=== PATIENT | female | born 1980 | race Native Hawaiian/Other Pacific Islander ===

== ENCOUNTER → 2016-08-15 | Outpatient (CLI) | payer OTHER ==
[2016-08-15 13:42] LABS: Follicle Stimulating Hormone 5.1 mIU/mL
== END | disposition home or self-care (01) ==
LOC: LABWHC1 12:13
PROVIDERS: ATTEND Obstetrics & Gynecology
DX: N93.1 Pre-pubertal vaginal bleeding (principal)
CPT/HCPCS: 36415; 82670; 83001; 83002

== ENCOUNTER → 2016-09-05 | Outpatient (CLI) | payer OTHER ==
[2016-09-05 16:10] LABS: Follicle Stimulating Hormone 3.8 mIU/mL; Prolactin 10.5 ng/mL (3.0-18.6)
== END | disposition home or self-care (01) ==
LOC: LABWHC1 15:13
PROVIDERS: ATTEND Obstetrics & Gynecology
DX: N93.8 Other specified abnormal uterine and vaginal bleeding (principal)
CPT/HCPCS: 36415; 82670; 83001; 83002; 84146

== ENCOUNTER → 2016-09-09 | Outpatient (CLI) | payer OTHER ==
[2016-09-09 10:48] LABS: Cholesterol 241 mg/dL (<200); Glucose 95 mg/dL (74-99); HDL Cholesterol 46 mg/dL (40-60); Triglycerides 126 mg/dL (<150)
== END | disposition home or self-care (01) ==
LOC: LABWHC1 09:18
PROVIDERS: ATTEND Obstetrics & Gynecology
DX: N93.8 Other specified abnormal uterine and vaginal bleeding (principal)
CPT/HCPCS: 36415; 80061; 82947; 83525

== ENCOUNTER → 2016-09-25 | Outpatient (CLI) | payer OTHER | END | disposition home or self-care (01) | LOC: LABWHC1 09:45 | PROVIDERS: ATTEND Obstetrics & Gynecology | DX: N93.8 Other specified abnormal uterine and vaginal bleeding (principal) | CPT/HCPCS: 36415; 84144 ==

== ENCOUNTER 2016-12-29 10:45 | Emergency (ER) | payer OTHER ==
[2016-12-29 10:49] VITALS: TEMP 97.8
[2016-12-29] MEDS ORDERED: MAG HYDROX/AL HYDROX/SIMETH 30 ML, HYOSCYAMINE ELIXIR 10 ML, CIMETIDINE HCL 300 MG, LID... PO STA ×4 (10:58)
--- NOTE | 2016-12-29 11:08 | ED ---
General Adult HPI - General Chief complaint: Abdominal Pain Stated complaint: abdominal pain Time Seen by Provider: 12/29/16 10:52 Source: patient, RN notes reviewed Mode of arrival: ambulatory Limitations: no limitations - History of Present Illness Initial comments: Patient is a 36-year-old female who presents emergency room today with chief complaint bowel pain on and off over the last 2 months. She does admit that she gets a sharp type pain to the middle of her abdomen. She states it lasted for just a few seconds at a time. States seems to be happening more often. States she was on her way to work when the pain came and did not seem like it is linear. She states having some mild discomfort in the abdomen. Denies radiation. Admits to some nausea at times. Denies any other associated symptoms. Patient denies any recent fever, chills, shortness of breath, chest pain, back pain, nausea or vomiting, numbness or tingling, dysuria or hematuria , constipation or diarrhea, headaches or visual changes, or any other complaints. - Related Data Home Medications Medication Instructions Recorded Confirmed Pnv No.95/Ferrous Fum/Folic AC 1 tab PO DAILY 12/29/16 12/29/16 [ Multivitamin Tablet] Previous Rx's Medication Instructions Recorded Omeprazole 20 mg PO DAILY #20 capsule. 12/29/16 Allergies Allergy/AdvReac Type Severity Reaction Status Date / Time No Known Allergies Allergy Verified 12/29/16 11:13 Review of Systems ROS Statement: Those systems with pertinent positive or pertinent negative responses have been documented in the HPI. ROS Other: All systems not noted in ROS Statement are negative. Past Medical History Past Medical History: No Reported History History of Any Multi-Drug Resistant Organisms: None Reported Past Surgical History: No Surgical Hx Reported Past Psychological History: No Psychological Hx Reported Smoking Status: Current every day smoker Past Alcohol Use History: Occasional Past Drug Use History: None Reported General Exam - General Exam Comments Initial Comments: General: The patient is awake and alert, in no distress, and does not appear acutely ill. Eye: Pupils are equal, round and reactive to light, extra-ocular movements are intact. No nystagmus. There is normal conjunctiva bilaterally. No signs of icterus. Ears, nose, mouth and throat: There are moist mucous membranes and no oral lesions. Neck: The neck is supple, there is no tenderness or JVD. Cardiovascular: There is a regular rate and rhythm. No murmur, rub or gallop is appreciated. Respiratory: Lungs are clear to auscultation, respirations are non-labored, breath sounds are equal. No wheezes, stridor, rales, or rhonchi. Gastrointestinal: Normal appearance and rhythm. Normal bowel sounds. Soft on palpation. Patient does have mild tenderness in epigastric. No rebound tenderness. No Guarding. No CVA tenderness. Musculoskeletal: Normal ROM, no tenderness. Strength 5/5. Sensation intact. Pulses equal bilaterally 2+. Neurological: A&O x 3. CN II-XII intact, There are no obvious motor or sensory deficits. Coordination appears grossly intact. Speech is normal. Skin: Skin is warm and dry and no rashes or lesions are noted. Psychiatric: Cooperative, appropriate mood & affect, normal judgment. Limitations: no limitations Course Vital Signs 12/29/16 12/29/16 10:47 11:49 Temperature 97.8 F Pulse Rate 90 80 Respiratory 20 18 Rate Blood Pressure 139/84 118/76 O2 Sat by Pulse 98 100 Oximetry Medical Decision Making - Medical Decision Making Patient does admit that there was some improvement after GI cocktail. Labs been reviewed. X-rays negative for any acute abnormalities. Results were discussed with the patient. Options of gallbladder disease versus a peptic ulcer disease were discussed with the patient. Patient will be started on Amoxil here in the emergency room and advised follow-up family doctor over the next 2-5 days. Advised return here to the emergency room symptoms increase or worsen or for new concerns. - Lab Data Result diagrams: 12/29/16 11:45 12/29/16 11:45 Lab Results 12/29/16 12/29/16 12/29/16 Range/Units 11:45 11:45 11:45 WBC 8.6 (3.8-10.6) k/uL RBC 5.27 (3.80-5.40) m/uL Hgb 16.0 (11.4-16.0) gm/dL Hct 47.2 H (34.0-46.0) % MCV 89.7 (80.0-100.0) fL MCH 30.4 (25.0-35.0) pg MCHC 33.9 (31.0-37.0) g/dL RDW 14.3 (11.5-15.5) % Plt Count 318 (150-450) k/uL Neutrophils % 76 % Lymphocytes % 15 % Monocytes % 6 % Eosinophils % 2 % Basophils % 0 % Neutrophils # 6.5 (1.3-7.7) k/uL Lymphocytes # 1.3 (1.0-4.8) k/uL Monocytes # 0.5 (0-1.0) k/uL Eosinophils # 0.1 (0-0.7) k/uL Basophils # 0.0 (0-0.2) k/uL Sodium 140 (137-145) mmol/L Potassium 4.1 (3.5-5.1) mmol/L Chloride 108 H (98-107) mmol/L Carbon Dioxide 21 L (22-30) mmol/L Anion Gap 11 mmol/L BUN 18 H (7-17) mg/dL Creatinine 0.70 (0.52-1.04) mg/dL Est GFR (MDRD) Af Amer >60 (>60 ml/min/1.73 sqM) Est GFR (MDRD) Non-Af >60 (>60 ml/min/1.73 sqM) Glucose 113 H (74-99) mg/dL Calcium 9.5 (8.4-10.2) mg/dL Total Bilirubin 1.1 (0.2-1.3) mg/dL AST 31 (14-36) U/L ALT 67 H (9-52) U/L Alkaline Phosphatase 71 (38-126) U/L Total Protein 7.8 (6.3-8.2) g/dL Albumin 4.6 (3.5-5.0) g/dL Amylase 48 (30-110) U/L Lipase 118 (23-300) U/L Urine Color Urine Appearance (Clear) Urine pH (5.0-8.0) Ur Specific [place] (1.001-1.035) Urine Protein (Negative) Urine Glucose (UA) (Negative) Urine Ketones (Negative) Urine Blood (Negative) Urine Nitrite (Negative) Urine Bilirubin (Negative) Urine Urobilinogen (<2.0) mg/dL Ur Leukocyte Esterase (Negative) Urine HCG, Qual Not Detected (Not Detectd) 12/29/16 Range/Units 11:45 WBC (3.8-10.6) k/uL RBC (3.80-5.40) m/uL Hgb (11.4-16.0) gm/dL Hct (34.0-46.0) % MCV (80.0-100.0) fL MCH (25.0-35.0) pg MCHC (31.0-37.0) g/dL RDW (11.5-15.5) % Plt Count (150-450) k/uL Neutrophils % % Lymphocytes % % Monocytes % % Eosinophils % % Basophils % % Neutrophils # (1.3-7.7) k/uL Lymphocytes # (1.0-4.8) k/uL Monocytes # (0-1.0) k/uL Eosinophils # (0-0.7) k/uL Basophils # (0-0.2) k/uL Sodium (137-145) mmol/L Potassium (3.5-5.1) mmol/L Chloride (98-107) mmol/L Carbon Dioxide (22-30) mmol/L Anion Gap mmol/L BUN (7-17) mg/dL Creatinine (0.52-1.04) mg/dL Est GFR (MDRD) Af Amer (>60 ml/min/1.73 sqM) Est GFR (MDRD) Non-Af (>60 ml/min/1.73 sqM) Glucose (74-99) mg/dL Calcium (8.4-10.2) mg/dL Total Bilirubin (0.2-1.3) mg/dL AST (14-36) U/L ALT (9-52) U/L Alkaline Phosphatase (38-126) U/L Total Protein (6.3-8.2) g/dL Albumin (3.5-5.0) g/dL Amylase (30-110) U/L Lipase (23-300) U/L Urine Color Yellow Urine Appearance Clear (Clear) Urine pH 6.5 (5.0-8.0) Ur Specific [place] 1.019 (1.001-1.035) Urine Protein Negative (Negative) Urine Glucose (UA) Negative (Negative) Urine Ketones Negative (Negative) Urine Blood Negative (Negative) Urine Nitrite Negative (Negative) Urine Bilirubin Negative (Negative) Urine Urobilinogen <2.0 (<2.0) mg/dL Ur Leukocyte Esterase Negative (Negative) Urine HCG, Qual (Not Detectd) Disposition Clinical Impression: Abdominal pain Disposition: HOME SELF-CARE Condition: Good Instructions: Abdominal Pain (ED) Additional Instructions: Please use medication as discussed. Please follow-up with family doctor in the next 2 days of symptoms have not improved. Please return to emergency room if the symptoms increase or worsen or for any other concerns. Prescriptions: Omeprazole 20 mg PO DAILY #20 capsule.dr Referrals: None,Stated [Primary Care Provider] - 1-2 days Linda Ayala MD [REFERRING] - 1-2 days Yrn Bennett DO [STAFF PHYSICIAN] - 1-2 days Time of Disposition: 12:31
[2016-12-29] MEDS ORDERED: FAMOTIDINE 20 MG/2 ML VIAL IV STA (11:36)
[2016-12-29] MEDS ORDERED: ONDANSETRON 4 MG/2 ML VIAL IVP STA (11:36)
[2016-12-29] MEDS ORDERED: SODIUM CHLORIDE 0.9% 1,000 ML IV STA (11:36)
[2016-12-29 11:51] VITALS: BP 118/76; PULSE 80; RESP 18
[2016-12-29 11:55] LABS: Basophils % (A) 0 %; CH 31.7; CHCM 35.4; Eosinophils # (A) 0.1 k/uL (0-0.7); Eosinophils % (A) 2 %; HCT 47.2 % (34.0-46.0); HDW 2.27; Luc # (Auto) 0.12; Luc % (Auto) 1; Lymphocytes # (A) 1.3 k/uL (1.0-4.8); Lymphocytes % (A) 15 %; MCH 30.4 pg (25.0-35.0); MCHC 33.9 g/dL (31.0-37.0); MCV 89.7 fL (80.0-100.0); Mean Platelet Volume 7.2; Monocytes # (A) 0.5 k/uL (0-1.0); Monocytes % (A) 6 %; Neutrophils # (A) 6.5 k/uL (1.3-7.7); Neutrophils % (A) 76 %; RBC 5.27 m/uL (3.80-5.40); RDW 14.3 % (11.5-15.5); WBC 8.6 k/uL (3.8-10.6); WBC (Perox) 8.31
[2016-12-29 11:56] LABS: Appearance,Urine Clear (Clear); Bilirubin,Urine Negative (Negative); Glucose,Urine (UA) Negative (Negative); Ketones,Urine Negative (Negative); Leukocyte Esterase,Urine Negative (Negative); Nitrite,Urine Negative (Negative); PH, Urine 6.5 (5.0-8.0); Protein,Urine Negative (Negative); Specific Gravity,Urine 1.019 (1.001-1.035); UA Billing (MACRO vs. MICRO) CHEM; Urobilinogen,Urine <2.0 mg/dL (<2.0)
[2016-12-29 12:06] LABS: ALT 67 U/L (9-52); AST 31 U/L (14-36); Alkaline Phosphatase 71 U/L (38-126); Amylase 48 U/L (30-110); Anion Gap 11 mmol/L; Blood Urea Nitrogen 18 mg/dL (7-17); Calcium 9.5 mg/dL (8.4-10.2); Carbon Dioxide 21 mmol/L (22-30); Chloride 108 mmol/L (98-107); Glucose 113 mg/dL (74-99); Non-African American GFR(MDRD) >60 (>60 ml/min/1.73 sqM); Potassium 4.1 mmol/L (3.5-5.1); Sodium 140 mmol/L (137-145); Total Bilirubin 1.1 mg/dL (0.2-1.3); Total Protein 7.8 g/dL (6.3-8.2)
--- NOTE | 2016-12-29 12:19 | XR ---
EXAMINATION TYPE: XR KUB DATE OF EXAM: 12/29/2016 CLINICAL DATA: 36-year-old female with abdominal pain, [facility] COMPARISON: None FINDINGS: Lung bases are clear. No evidence for free intraperitoneal air. No dilated small bowel or air-fluid levels. Scattered air and stool seen throughout the colon extendi ng distally into the rectum. Mild central burning. A couple small air-fluid level in the right hemico shawanda. No suspicious calcifications identified. IMPRESSION: 1. No evidence of bowel obstruction or free intraperitoneal air. 2. A couple small air-fluid levels in the right hemicolon could represent an enteritis or regional il eus.
== END 2016-12-29 12:45 | disposition home or self-care (01) ==
LOC: EC 10:45
DX: R10.9 Unspecified abdominal pain (principal); R11.0 Nausea; F17.200 Nicotine dependence, unspecified, uncomplicated; Z79.899 Other long term (current) drug therapy
CPT/HCPCS: 36415; 80053; 82150; 83690; 85025; 81003; 81025; 74000; 99284; 96374; 96375; 96361; J2405

== ENCOUNTER 2017-01-30 12:20 | Emergency (ER) | payer OTHER ==
[2017-01-30 12:40] VITALS: TEMP 99
[2017-01-30] MEDS ORDERED: FAMOTIDINE 20 MG/2 ML VIAL IV STA (12:56)
[2017-01-30] MEDS ORDERED: ONDANSETRON 4 MG/2 ML VIAL IVP STA (12:56)
[2017-01-30] MEDS ORDERED: SODIUM CHLORIDE 0.9% 1,000 ML IV STA (12:56)
--- NOTE | 2017-01-30 13:00 | ED ---
General Adult HPI - General Chief complaint: Abdominal Pain Stated complaint: Abd Pain Time Seen by Provider: 01/30/17 12:40 Source: patient, RN notes reviewed Mode of arrival: ambulatory Limitations: no limitations - History of Present Illness Initial comments: 37-year-old female presents emergency Department with chief complaint of centralized abdominal cramping. Patient states she's had this on and off for about 3 months. Patient states it comes and goes at random. Sometimes she'll vomit and that will make her feel better. Patient denies any relation to food. Patient denies any abdominal surgeries. Patient states she went to her doctor they said everything was fine ultrasound. Patient states she just does not know why this pain comes and goes. This time she is feeling somewhat better after she vomited. Patient was concerned due to her symptoms so she thought that she should be evaluated.Patient denies any recent fever, chills, shortness of breath, chest pain, back pain, numbness or tingling, dysuria or hematuria, constipation or diarrhea, headaches or visual changes, or any other current symptoms. - Related Data Home Medications Medication Instructions Recorded Confirmed Pnv No.95/Ferrous Fum/Folic AC 1 tab PO DAILY 12/29/16 12/29/16 [ Multivitamin Tablet] Previous Rx's Medication Instructions Recorded Omeprazole 20 mg PO DAILY #20 capsule. 12/29/16 Allergies Allergy/AdvReac Type Severity Reaction Status Date / Time No Known Allergies Allergy Verified 01/30/17 13:54 Review of Systems ROS Statement: Those systems with pertinent positive or pertinent negative responses have been documented in the HPI. ROS Other: All systems not noted in ROS Statement are negative. Past Medical History Past Medical History: No Reported History History of Any Multi-Drug Resistant Organisms: None Reported Past Surgical History: No Surgical Hx Reported Past Psychological History: No Psychological Hx Reported Smoking Status: Current every day smoker Past Alcohol Use History: Occasional Past Drug Use History: None Reported General Exam - General Exam Comments Initial Comments: General: The patient is awake and alert, in no distress, and does not appear acutely ill. Eye: Pupils are equal, round and reactive to light, extra-ocular movements are intact; there is normal conjunctiva bilaterally. No signs of icterus. Ears, nose, mouth and throat: There are moist mucous membranes. Neck: The neck is supple, there is no tenderness. Cardiovascular: There is a regular rate and rhythm. No murmur, rub or gallop is appreciated. Respiratory: Lungs are clear to auscultation, respirations are non-labored, breath sounds are equal. No wheezes, stridor, rales, or rhonchi. Gastrointestinal: Soft, non-distended, non-tender abdomen without masses or organomegaly noted. There is no rebound or guarding present. No CVA tenderness. Bowel sounds are unremarkable. Back: There is no tenderness to palpation in the midline. There is no obvious deformity. No rashes noted. Musculoskeletal: Normal ROM, no tenderness, There is no pedal edema. There is no calf tenderness or swelling. Sensation intact. Pulses equal bilaterally 2+. Neurological: CN II-XII intact, There are no obvious motor or sensory deficits. Coordination appears grossly intact. Speech is normal. Skin: Skin is warm and dry and no rashes or lesions are noted. Psychiatric: Cooperative, appropriate mood & affect, normal judgment. Limitations: no limitations Course Vital Signs 01/30/17 12:38 Temperature 99 F Pulse Rate 75 Respiratory 16 Rate Blood Pressure 127/73 O2 Sat by Pulse 98 Oximetry Medical Decision Making - Medical Decision Making 37-year-old female presents with complaint abdominal cramping. This time the patient continues complaining of no pain. We did have mildly elevated liver enzymes we offered her x-rays and ultrasounds further evaluate this she states that she will follow up with the GI doctor. We discussed fine about liver enzymes. We did discuss return for resolve her questions. We will respect her wishes about doing further imaging such states that she has had these. This time patient will be discharged home. Patient is agreement this plan. - Lab Data Result diagrams: 01/30/17 13:13 01/30/17 13:13 Lab Results 01/30/17 01/30/17 01/30/17 Range/Units 13:05 13:05 13:13 WBC (3.8-10.6) k/uL RBC (3.80-5.40) m/uL Hgb (11.4-16.0) gm/dL Hct (34.0-46.0) % MCV (80.0-100.0) fL MCH (25.0-35.0) pg MCHC (31.0-37.0) g/dL RDW (11.5-15.5) % Plt Count (150-450) k/uL Neutrophils % % Lymphocytes % % Monocytes % % Eosinophils % % Basophils % % Neutrophils # (1.3-7.7) k/uL Lymphocytes # (1.0-4.8) k/uL Monocytes # (0-1.0) k/uL Eosinophils # (0-0.7) k/uL Basophils # (0-0.2) k/uL Sodium 140 (137-145) mmol/L Potassium 3.9 (3.5-5.1) mmol/L Chloride 106 (98-107) mmol/L Carbon Dioxide 24 (22-30) mmol/L Anion Gap 10 mmol/L BUN 17 (7-17) mg/dL Creatinine 0.60 (0.52-1.04) mg/dL Est GFR (MDRD) Af Amer >60 (>60 ml/min/1.73 sqM) Est GFR (MDRD) Non-Af >60 (>60 ml/min/1.73 sqM) Glucose 120 H (74-99) mg/dL Calcium 9.4 (8.4-10.2) mg/dL Total Bilirubin 1.2 (0.2-1.3) mg/dL AST 52 H (14-36) U/L ALT 135 H (9-52) U/L Alkaline Phosphatase 97 (38-126) U/L Total Protein 7.3 (6.3-8.2) g/dL Albumin 4.4 (3.5-5.0) g/dL Amylase 59 (30-110) U/L Lipase 153 (23-300) U/L Urine Color Light Yellow Urine Appearance Clear (Clear) Urine pH 7.5 (5.0-8.0) Ur Specific [place] 1.005 (1.001-1.035) Urine Protein Negative (Negative) Urine Glucose (UA) Negative (Negative) Urine Ketones Negative (Negative) Urine Blood Negative (Negative) Urine Nitrite Negative (Negative) Urine Bilirubin Negative (Negative) Urine Urobilinogen <2.0 (<2.0) mg/dL Ur Leukocyte Esterase Negative (Negative) Urine HCG, Qual Not Detected (Not Detectd) 01/30/17 Range/Units 13:13 WBC 9.9 (3.8-10.6) k/uL RBC 5.02 (3.80-5.40) m/uL Hgb 15.3 (11.4-16.0) gm/dL Hct 45.9 (34.0-46.0) % MCV 91.5 (80.0-100.0) fL MCH 30.5 (25.0-35.0) pg MCHC 33.4 (31.0-37.0) g/dL RDW 12.8 (11.5-15.5) % Plt Count 297 (150-450) k/uL Neutrophils % 78 % Lymphocytes % 14 % Monocytes % 5 % Eosinophils % 2 % Basophils % 0 % Neutrophils # 7.7 (1.3-7.7) k/uL Lymphocytes # 1.4 (1.0-4.8) k/uL Monocytes # 0.5 (0-1.0) k/uL Eosinophils # 0.2 (0-0.7) k/uL Basophils # 0.0 (0-0.2) k/uL Sodium (137-145) mmol/L Potassium (3.5-5.1) mmol/L Chloride (98-107) mmol/L Carbon Dioxide (22-30) mmol/L Anion Gap mmol/L BUN (7-17) mg/dL Creatinine (0.52-1.04) mg/dL Est GFR (MDRD) Af Amer (>60 ml/min/1.73 sqM) Est GFR (MDRD) Non-Af (>60 ml/min/1.73 sqM) Glucose (74-99) mg/dL Calcium (8.4-10.2) mg/dL Total Bilirubin (0.2-1.3) mg/dL AST (14-36) U/L ALT (9-52) U/L Alkaline Phosphatase (38-126) U/L Total Protein (6.3-8.2) g/dL Albumin (3.5-5.0) g/dL Amylase (30-110) U/L Lipase (23-300) U/L Urine Color Urine Appearance (Clear) Urine pH (5.0-8.0) Ur Specific [place] (1.001-1.035) Urine Protein (Negative) Urine Glucose (UA) (Negative) Urine Ketones (Negative) Urine Blood (Negative) Urine Nitrite (Negative) Urine Bilirubin (Negative) Urine Urobilinogen (<2.0) mg/dL Ur Leukocyte Esterase (Negative) Urine HCG, Qual (Not Detectd) Disposition Clinical Impression: Elevated liver enzymes, Abdominal pain Disposition: HOME SELF-CARE Condition: Stable Instructions: Abdominal Pain (ED) Additional Instructions: Please use medication as discussed. Please follow up with family doctor if symptoms have not improved over the next two days. Please return to the emergency room if your symptoms increase or worsen or for any other concerns. Referrals: Yrn Bennett DO [Primary Care Provider] - 1-2 days Neisha Gonzalez MD [STAFF PHYSICIAN] - 1-2 days Time of Disposition: 13:56
[2017-01-30 13:23] LABS: Basophils % (A) 0 %; CH 31.1; CHCM 34.1; Eosinophils # (A) 0.2 k/uL (0-0.7); Eosinophils % (A) 2 %; HCT 45.9 % (34.0-46.0); HDW 2.29; HGB 15.3 gm/dL (11.4-16.0); Luc # (Auto) 0.12; Luc % (Auto) 1; Lymphocytes # (A) 1.4 k/uL (1.0-4.8); Lymphocytes % (A) 14 %; MCH 30.5 pg (25.0-35.0); MCHC 33.4 g/dL (31.0-37.0); MCV 91.5 fL (80.0-100.0); Mean Platelet Volume 6.6; Monocytes # (A) 0.5 k/uL (0-1.0); Monocytes % (A) 5 %; Neutrophils # (A) 7.7 k/uL (1.3-7.7); Neutrophils % (A) 78 %; RBC 5.02 m/uL (3.80-5.40); RDW 12.8 % (11.5-15.5); WBC 9.9 k/uL (3.8-10.6)
[2017-01-30 13:25] LABS: Appearance,Urine Clear (Clear); Bilirubin,Urine Negative (Negative); Glucose,Urine (UA) Negative (Negative); Ketones,Urine Negative (Negative); Leukocyte Esterase,Urine Negative (Negative); Nitrite,Urine Negative (Negative); PH, Urine 7.5 (5.0-8.0); Protein,Urine Negative (Negative); Specific Gravity,Urine 1.005 (1.001-1.035); UA Billing (MACRO vs. MICRO) CHEM; Urobilinogen,Urine <2.0 mg/dL (<2.0)
[2017-01-30 13:32] LABS: ALT 135 U/L (9-52); AST 52 U/L (14-36); Alkaline Phosphatase 97 U/L (38-126); Amylase 59 U/L (30-110); Anion Gap 10 mmol/L; Blood Urea Nitrogen 17 mg/dL (7-17); Calcium 9.4 mg/dL (8.4-10.2); Carbon Dioxide 24 mmol/L (22-30); Chloride 106 mmol/L (98-107); Glucose 120 mg/dL (74-99); Non-African American GFR(MDRD) >60 (>60 ml/min/1.73 sqM); Potassium 3.9 mmol/L (3.5-5.1); Sodium 140 mmol/L (137-145); Total Bilirubin 1.2 mg/dL (0.2-1.3); Total Protein 7.3 g/dL (6.3-8.2)
[2017-01-30 14:00] VITALS: BP 108/67; PULSE 67; RESP 18
== END 2017-01-30 14:09 | disposition home or self-care (01) ==
LOC: EC 12:20
DX: R10.9 Unspecified abdominal pain (principal); R74.8 Abnormal levels of other serum enzymes; R11.10 Vomiting, unspecified; F17.200 Nicotine dependence, unspecified, uncomplicated; Z79.899 Other long term (current) drug therapy
CPT/HCPCS: 99284 ×2; 96374 ×2; 96375 ×2; 96361 ×2; 36415; 80053; 80074; 82150; 83690; 85025; 81003; 81025; J2405

== ENCOUNTER → 2018-01-01 | Outpatient (CLI) | payer OTHER ==
[2018-01-01 15:53] LABS: Vitamin D 25 Hydroxy 16.2 ng/mL (30.0-100.0)
[2018-01-01 16:44] LABS: Hepatitis C IgG Antibody Non-Reactive (Non-Reactive)
[2018-01-01 18:29] LABS: HIV 1 AB Non-Reactive (Non-Reactive); HIV AB P24 Non-Reactive (Non-Reactive); HIV P24 AG Non-Reactive (Non-Reactive)
== END ==
LOC: LABWHC1 10:29
PROVIDERS: ATTEND Obstetrics & Gynecology Reproductive Endocrinology
DX: Z31.41 Encounter for fertility testing (principal)
CPT/HCPCS: 36415; 82306; 83520; 86780; 86787; 86803; 86850; 86900; 86901; 87340; 87390

== ENCOUNTER → 2018-02-12 | Outpatient (CLI) | payer OTHER ==
[2018-02-12 10:22] LABS: HCG,Quantitative Serum <2.4 mIU/mL
[2018-02-12 15:31] LABS: Progesterone 0.6 ng/mL
== END ==
LOC: LABWHC1 09:00
PROVIDERS: ATTEND Obstetrics & Gynecology Reproductive Endocrinology
DX: E28.9 Ovarian dysfunction, unspecified (principal)
CPT/HCPCS: 36415; 82670; 83001; 83002; 84144; 84443; 84702

== ENCOUNTER → 2018-02-17 | Outpatient (CLI) | payer OTHER ==
[2018-02-17 17:53] LABS: Progesterone <0.2 ng/mL
== END | disposition home or self-care (01) ==
LOC: LABWHC1 09:53
PROVIDERS: ATTEND Obstetrics & Gynecology Reproductive Endocrinology
DX: E28.9 Ovarian dysfunction, unspecified (principal)
CPT/HCPCS: 36415; 82670; 83002; 84144

== ENCOUNTER → 2018-03-03 | Outpatient (CLI) | payer OTHER ==
[2018-02-02 16:50] LABS: HCG,Quantitative Serum <2.4 mIU/mL
--- NOTE | 2018-02-02 17:25 | US ---
EXAMINATION TYPE: US transvaginal DATE OF EXAM: 02/02/2018 COMPARISON: NONE CLINICAL HISTORY: E28.2 Polycystic ovarian syndrome. TECHNIQUE: Transvaginal (TV). : Date of LMP: 12/18/2017 EXAM MEASUREMENTS: Uterus: 6.8 x 3.5 x 3.7 cm Endometrial Stripe: 0.9 cm Right Ovary: 2.7x1.6x3.0 cm Left Ovary: 3.0x1.9x3.7 cm 1. Uterus: small nabothian 0.4 x 0.5 x 0.4 cm 2. Endometrium: 0.7x0.5x 0.7 cm cluster cystic area lower endometrium segment non vascular 3. Right Ovary: multiple cysts 0.7 x 0.6 x 0.4 cm, 0.5 x 0.3 x 0.3 cm 4. Left Ovary: cyst 0.5 x 0.5 x 0.3 cm,0.6 x 0.4 x 0.4 cm, peripheral hypoechoic foci compatible wit h follicles are noted within the left ovary and right ovary. 5. Bilateral Adnexa: wnl 6. Posterior cul-de-sac: wnl Grayscale, color Doppler imaging performed of the ovaries. IMPRESSION: Correlate for Marie-Femi syndrome. Nabothian cysts suspected within the cervix.
[2018-02-03 03:07] LABS: Progesterone 5.3 ng/mL
[2018-03-03 14:37] LABS: HCG,Quantitative Serum <2.4 mIU/mL
--- NOTE | 2018-03-03 16:14 | US ---
EXAMINATION TYPE: US transvaginal DATE OF EXAM: 03/03/2018 COMPARISON: 02/02/2018 CLINICAL HISTORY: 38-year-old female E28.9 OVARIAN DYSFUNCTION, IVF with history of PCOS. TECHNIQUE: Transvaginal (TV) Date of LMP: 03/02/18 FINDINGS: EXAM MEASUREMENTS: Uterus: 8.1 x 3.7 x 4.7 cm Endometrial Stripe: 0.5 cm Right Ovary: 4.4 x 3.4 x 4.0 cm for a volume of 29.9 mL. Left Ovary: 4.8 x 3.4 x 3.1cm for a volume of 25.3 mL. 1. Uterus: Anteverted,wnl. Cervical nabothian cyst is noted. 2. Endometrium: wnl 3. Right Ovary: 15 follicles counted, largest measuring 0.9 x 0.9 x 0.9 4. Left Ovary: 15 follicles counted, largest measuring 1.1 x 0.8 x 0.6cm Spectral, color and waveform doppler imaging shows good arterial and venous flow within the ovaries ; there is no evidence for ovarian torsion. 5. There is trace anterior pelvic free fluid seen on the provided images and trace right adnexal free fluid. IMPRESSION: 1. The ovaries are now mildly enlarged with volumes measuring up to nearly 30 mL. 2. There is also trace anterior and right adnexal free fluid now seen. 3. Additional follow-up as clinically indicated.
[2018-03-03 19:11] LABS: Progesterone 0.5 ng/mL
== END | disposition home or self-care (01) ==
LOC: RADUSWWP 02-02 15:28 → EDSTATUS 02-02 15:40 → RADUSWWP 12:48
PROVIDERS: ATTEND Obstetrics & Gynecology Reproductive Endocrinology
DX: N83.8 Other noninflammatory disorders of ovary, fallopian tube and broad ligament (principal); E28.2 Polycystic ovarian syndrome
CPT/HCPCS: 36415; 76830; 82670; 83001; 83002; 84144; 84443; 84702

== ENCOUNTER 2018-03-10 22:53 | Emergency (ER) | payer OTHER ==
[2018-03-11] MEDS ORDERED: SODIUM CHLORIDE 0.9% 1,000 ML IV ONE
[2018-03-11] MEDS ORDERED: ONDANSETRON 4 MG/2 ML VIAL IVP STA (00:01)
--- NOTE | 2018-03-11 00:07 | ED ---
Abdominal Pain HPI - General Source: patient Mode of arrival: ambulatory Limitations: no limitations <Xiomy Graff - Last Filed: 03/11/18 04:20> <Chrissy Ballesteros - Last Filed: 03/15/18 03:23> - General Chief Complaint: Abdominal Pain Stated Complaint: Abd Pain,Vomiting Time Seen by Provider: 03/10/18 23:14 - History of Present Illness Initial Comments: 38-year-old female with no past medical history presenting today for chief complaint of epigastric abdominal pain and vomiting x1 day. Patient states that on 2 PM she noticed left upper quadrant and epigastric pain she states at first it felt like gas however at work he began to increase she became nauseous and had an episode of vomiting. Patient states that she has vomited 6 times since. She states it feels as though she might have food poisoning. Patient denies gross blood in vomit, she did state there was a small amount of pink in it at one time, patient denies diarrhea, back pain, vaginal bleeding, lower abdominal pain, pelvic pain, chest pain, shortness of breath, dyspnea on exertion. Patient is currently in the process of in vitro fertilization however she is not currently using hormonal replacement. Upon arrival pt HR elevated, temperature 99.5F. Pt did states during episodes of vomiting she felt chilled. Remainder of ROS (-), Patient denies any recent fever, numbness or tingling, dysuria or hematuria, constipation or diarrhea, headaches or visual changes, or any other complaints. (Xiomy Graff) - Related Data Home Medications Medication Instructions Recorded Confirmed Pnv No.95/Ferrous Fum/Folic AC 1 tab PO DAILY 12/29/16 01/30/17 [ Multivitamin Tablet] Naltrexone HCl [Revia] 3 mg PO DAILY 03/10/18 03/10/18 [place]-3 Fatty Acids/Fish Oil [Fish 1 each PO 03/10/18 03/10/18 Oil 1,000 mg Softgel] Previous Rx's Medication Instructions Recorded Ondansetron [Zofran] 4 mg PO Q12HR PRN 7 Days #14 tab 03/11/18 Allergies Allergy/AdvReac Type Severity Reaction Status Date / Time latex AdvReac irritation Verified 03/10/18 23:06 Review of Systems ROS Other: All systems not noted in ROS Statement are negative. Constitutional: Denies: fever, chills ENT: Denies: ear pain, throat pain Respiratory: Denies: cough, dyspnea, wheezes, hemoptysis, stridor Cardiovascular: Denies: chest pain, palpitations, dyspnea on exertion Endocrine: Denies: fatigue Gastrointestinal: Reports: abdominal pain, nausea, vomiting. Denies: as per HPI , diarrhea, constipation, hematemesis, melena, hematochezia Genitourinary: Denies: urgency, dysuria, frequency, hematuria Musculoskeletal: Denies: back pain Skin: Denies: rash, lesions Neurological: Denies: headache, weakness, numbness, paresthesias, confusion, abnormal gait <Xiomy Graff - Last Filed: 03/11/18 04:20> ROS Other: All systems not noted in ROS Statement are negative. <Chrissy Ballesteros - Last Filed: 03/15/18 03:23> ROS Statement: Those systems with pertinent positive or pertinent negative responses have been documented in the HPI. Past Medical History Past Medical History: No Reported History History of Any Multi-Drug Resistant Organisms: None Reported Past Surgical History: No Surgical Hx Reported Additional Past Surgical History / Comment(s): nasal, egg retreival Past Psychological History: No Psychological Hx Reported Smoking Status: Current every day smoker Past Alcohol Use History: Rare Past Drug Use History: None Reported <Xiomy Graff - Last Filed: 03/11/18 04:20> General Exam Limitations: no limitations <Xiomy Graff - Last Filed: 03/11/18 04:20> <Chrissy Ballesteros P - Last Filed: 03/15/18 03:23> - General Exam Comments Initial Comments: General: The patient is awake and alert, in no distress, and does not appear acutely ill. Eye: Pupils are equal, round and reactive to light, extra-ocular movements are intact. No nystagmus. There is normal conjunctiva bilaterally. No signs of icterus. Ears, nose, mouth and throat: There are dry mucous membranes and no oral lesions. Neck: The neck is supple, there is no tenderness or JVD. Cardiovascular: There is a regular rate and rhythm. No murmur, rub or gallop is appreciated. Respiratory: Lungs are clear to auscultation, respirations are non-labored, breath sounds are equal. No wheezes, stridor, rales, or rhonchi. Gastrointestinal: No noted diaphoresis, jaundice, pallor, protecting postures or squirming. Symmetrical pigmentation of abdomen without signs of inflammation, scars, or striae. Umbilicus mildline, inverted without swelling. No dilated veins.No noted abdominal distention. No visible masses. No peristalsis, aortic pulsations , or ventral hernia. Bowel sounds audible in all 4 quadrants, unremarkable. No friction rubs or venous hums. No epigastic, hepatic or abdominal bruits. mild discomfort with deep palpation of the epigastric and left upper quadrant. Remainder of abdominal exam no tenderness to light or deep palpation. Liver edge , not palpable. Spleen edge, right and left kidney not palpable. Superior bladder margin non-tender. Special Testing: Negative [place], Rovsing, McBurney, Geovanny, cutaneous hyperesthesia. Iliopsoas and obturator tests negative bilaterally. Negative Heel Jar test. No CVA tenderness. Digital rectal exam deferred. Negative gonsalez turners or cullens sign Musculoskeletal: Normal ROM, no tenderness. Strength 5/5. Sensation intact. Radial pulses equal bilaterally 2+. Neurological: A&O x 3. CN II-XII intact, There are no obvious motor or sensory deficits. Coordination appears grossly intact. Speech is normal. Skin: Skin is warm and dry and no rashes or lesions are noted. Psychiatric: Cooperative, appropriate mood & affect, normal judgment. (Xiomy Graff) Course <Xiomy Graff - Last Filed: 03/11/18 04:20> <Chrissy Ballesteros - Last Filed: 03/15/18 03:23> Vital Signs 03/10/18 03/11/18 23:02 02:02 Temperature 99.5 F 99 F Pulse Rate 125 H 81 Respiratory 16 18 Rate Blood Pressure 124/84 104/65 O2 Sat by Pulse 97 97 Oximetry - Reevaluation(s) Reevaluation #1: Patient states that she is feeling almost 100% better from arrival after administration of Zofran and IV fluids. Patient states ready for discharge. 03/11/18 (Xiomy Graff) Medical Decision Making - Lab Data Result diagrams: 03/11/18 00:15 03/11/18 00:15 <Xiomy Graff - Last Filed: 03/11/18 04:20> - Lab Data Result diagrams: 03/11/18 00:15 03/11/18 00:15 <Chrissy Ballesteros - Last Filed: 03/15/18 03:23> - Medical Decision Making Upon arrival patient spell signs except limits. Patient does not appear to be acute distress. Patient given 1 L IV fluid bolus given history of vomiting. As well as Zofran for nausea. Abdominal exam overall benign, patient did admit to some mild epigastric and left upper quadrant discomfort, she denies this being pain. No signs concerning for acute abdomen. Laboratory findings revealed elevated white blood cell, nonspecific finding. HCG negative. Urinalysis revealed 25 squamous cell, this was not a clean catch, patient is finishing menstruation. No leukocyte esterase or nitrates. She denies urinary symptoms. Given patient clinical improvement with Zofran IV fluids I feel she is stable for discharge. Patient states this symptoms felt similar to food poisoning, at this time I feel patient may have gastroenteritis. Patient was given strict return parameters for any worsening symptoms. Patient verbalized understanding. Patient case discussed with Dr. Ballesteros who agreed impression and plan. She is to follow-up with primary care provider in one to 2 days. Initial heart rate upon arrival 125, repeat 81. Patient discharged in stable condition, patient denied questions. She was discharged with a outpatient prescription for Zofran for nausea. (Xiomy Graff) I was available for consultation in the emergency department. The history and physical exam were done by the midlevel provider. I was consulted for this patient's care. I reviewed the case with the midlevel provider and based on their presentation of the patient, I agree with the assessment, medical decision making and plan of care as documented. (Chrissy Ballesteros) - Lab Data Lab Results 03/11/18 03/11/18 03/11/18 Range/Units 00:15 00:15 00:15 WBC 15.3 H (3.8-10.6) k/uL RBC 5.17 (3.80-5.40) m/uL Hgb 15.6 (11.4-16.0) gm/dL Hct 46.2 H (34.0-46.0) % MCV 89.4 (80.0-100.0) fL MCH 30.2 (25.0-35.0) pg MCHC 33.8 (31.0-37.0) g/dL RDW 13.2 (11.5-15.5) % Plt Count 273 (150-450) k/uL Neutrophils % 93 % Lymphocytes % 3 % Monocytes % 3 % Eosinophils % 1 % Basophils % 0 % Neutrophils # 14.1 H (1.3-7.7) k/uL Lymphocytes # 0.4 L (1.0-4.8) k/uL Monocytes # 0.5 (0-1.0) k/uL Eosinophils # 0.1 (0-0.7) k/uL Basophils # 0.0 (0-0.2) k/uL Sodium 139 (137-145) mmol/L Potassium 4.3 (3.5-5.1) mmol/L Chloride 108 H (98-107) mmol/L Carbon Dioxide 20 L (22-30) mmol/L Anion Gap 11 mmol/L BUN 23 H (7-17) mg/dL Creatinine 0.69 (0.52-1.04) mg/dL Est GFR (CKD-EPI)AfAm >90 (>60 ml/min/1.73 sqM) Est GFR (CKD-EPI)NonAf >90 (>60 ml/min/1.73 sqM) Glucose 128 H (74-99) mg/dL Calcium 9.3 (8.4-10.2) mg/dL Total Bilirubin 1.3 (0.2-1.3) mg/dL AST 28 (14-36) U/L ALT 43 (9-52) U/L Alkaline Phosphatase 72 (38-126) U/L Total Protein 7.8 (6.3-8.2) g/dL Albumin 4.6 (3.5-5.0) g/dL Lipase 119 (23-300) U/L Urine Color Light Brown Urine Appearance Turbid H (Clear) Urine pH 5.5 (5.0-8.0) Ur Specific [place] 1.029 (1.001-1.035) Urine Protein 1+ H (Negative) Urine Glucose (UA) Negative (Negative) Urine Ketones 1+ H (Negative) Urine Blood Trace H (Negative) Urine Nitrite Negative (Negative) Urine Bilirubin Negative (Negative) Urine Urobilinogen 2.0 (<2.0) mg/dL Ur Leukocyte Esterase Negative (Negative) Urine WBC 17 H (0-5) /hpf Ur Squamous Epith Cells 25 H (0-4) /hpf Amorphous Sediment Occasional H (None) /hpf Urine Mucus Many H (None) /hpf Urine HCG, Qual (Not Detectd) 03/11/18 Range/Units 00:15 WBC (3.8-10.6) k/uL RBC (3.80-5.40) m/uL Hgb (11.4-16.0) gm/dL Hct (34.0-46.0) % MCV (80.0-100.0) fL MCH (25.0-35.0) pg MCHC (31.0-37.0) g/dL RDW (11.5-15.5) % Plt Count (150-450) k/uL Neutrophils % % Lymphocytes % % Monocytes % % Eosinophils % % Basophils % % Neutrophils # (1.3-7.7) k/uL Lymphocytes # (1.0-4.8) k/uL Monocytes # (0-1.0) k/uL Eosinophils # (0-0.7) k/uL Basophils # (0-0.2) k/uL Sodium (137-145) mmol/L Potassium (3.5-5.1) mmol/L Chloride (98-107) mmol/L Carbon Dioxide (22-30) mmol/L Anion Gap mmol/L BUN (7-17) mg/dL Creatinine (0.52-1.04) mg/dL Est GFR (CKD-EPI)AfAm (>60 ml/min/1.73 sqM) Est GFR (CKD-EPI)NonAf (>60 ml/min/1.73 sqM) Glucose (74-99) mg/dL Calcium (8.4-10.2) mg/dL Total Bilirubin (0.2-1.3) mg/dL AST (14-36) U/L ALT (9-52) U/L Alkaline Phosphatase (38-126) U/L Total Protein (6.3-8.2) g/dL Albumin (3.5-5.0) g/dL Lipase (23-300) U/L Urine Color Urine Appearance (Clear) Urine pH (5.0-8.0) Ur Specific [place] (1.001-1.035) Urine Protein (Negative) Urine Glucose (UA) (Negative) Urine Ketones (Negative) Urine Blood (Negative) Urine Nitrite (Negative) Urine Bilirubin (Negative) Urine Urobilinogen (<2.0) mg/dL Ur Leukocyte Esterase (Negative) Urine WBC (0-5) /hpf Ur Squamous Epith Cells (0-4) /hpf Amorphous Sediment (None) /hpf Urine Mucus (None) /hpf Urine HCG, Qual Not Detected (Not Detectd) Disposition Is patient prescribed a controlled substance at d/c from ED?: No Time of Disposition: 01:31 <Xiomy Graff - Last Filed: 03/11/18 04:20> <Chrissy Ballesteros P - Last Filed: 03/15/18 03:23> Clinical Impression: Nausea and vomiting, Epigastric pain Disposition: HOME SELF-CARE Condition: Good Instructions: Acute Nausea and Vomiting (ED), Abdominal Pain (ED) Additional Instructions: Please use medication as discussed. Please follow-up with family doctor in the next 2 days.. Please return to emergency room if the symptoms increase or worsen or for any other concerns, including worsening/changes in abdominal pain. Prescriptions: Ondansetron [Zofran] 4 mg PO Q12HR PRN 7 Days #14 tab PRN Reason: Nausea Referrals: None,Stated [Primary Care Provider] - [facility]-[address] [facility] - 1-2 days
[2018-03-11 00:33] LABS: Basophils % (A) 0 %; Eosinophils # (A) 0.1 k/uL (0-0.7); Eosinophils % (A) 1 %; HCT 46.2 % (34.0-46.0); HGB 15.6 gm/dL (11.4-16.0); Lymphocytes # (A) 0.4 k/uL (1.0-4.8); Lymphocytes % (A) 3 %; MCH 30.2 pg (25.0-35.0); MCHC 33.8 g/dL (31.0-37.0); MCV 89.4 fL (80.0-100.0); Mean Platelet Volume 6.3; Monocytes # (A) 0.5 k/uL (0-1.0); Monocytes % (A) 3 %; Neutrophils # (A) 14.1 k/uL (1.3-7.7); Neutrophils % (A) 93 %; Platelet Count 273 k/uL (150-450); RBC 5.17 m/uL (3.80-5.40); RDW 13.2 % (11.5-15.5); WBC 15.3 k/uL (3.8-10.6)
[2018-03-11 00:38] LABS: Amorphous Sediment,Urine Occasional /hpf; Appearance,Urine Turbid (Clear); Bilirubin,Urine Negative (Negative); Blood,Urine Trace (Negative); Color,Urine Light Brown; Glucose,Urine (UA) Negative (Negative); Ketones,Urine 1+ (Negative); Leukocyte Esterase,Urine Negative (Negative); Mucus,Urine Many /hpf; Nitrite,Urine Negative (Negative); PH, Urine 5.5 (5.0-8.0); Protein,Urine 1+ (Negative); Specific Gravity,Urine 1.029 (1.001-1.035); Squamous Epithelial Cell,Urine 25 /hpf (0-4); WBC,Urine 17 /hpf (0-5)
[2018-03-11 00:45] LABS: ALT 43 U/L (9-52); AST 28 U/L (14-36); Albumin 4.6 g/dL (3.5-5.0); Alkaline Phosphatase 72 U/L (38-126); Anion Gap 11 mmol/L; Blood Urea Nitrogen 23 mg/dL (7-17); Calcium 9.3 mg/dL (8.4-10.2); Carbon Dioxide 20 mmol/L (22-30); Chloride 108 mmol/L (98-107); Glucose 128 mg/dL (74-99); Lipase 119 U/L (23-300); Potassium 4.3 mmol/L (3.5-5.1); Sodium 139 mmol/L (137-145); Total Bilirubin 1.3 mg/dL (0.2-1.3); Total Protein 7.8 g/dL (6.3-8.2)
[2018-03-11 02:03] VITALS: BP 104/65; PULSE 81; RESP 18; TEMP 99
== END 2018-03-11 02:03 | disposition home or self-care (01) ==
LOC: EC 22:53
DX: R10.13 Epigastric pain (principal); R11.2 Nausea with vomiting, unspecified; R10.11 Right upper quadrant pain; D72.829 Elevated white blood cell count, unspecified; F17.200 Nicotine dependence, unspecified, uncomplicated; Z79.899 Other long term (current) drug therapy; Z91.040 Latex allergy status
CPT/HCPCS: 99283; 96374; 96361; 36415; 80053; 83690; 85025; 81001; 81025; J2405

== ENCOUNTER 2018-11-29 07:36 | Emergency (ER) | payer OTHER ==
[2018-11-29] MEDS ORDERED: ACETAMINOPHEN TAB 500 MG TAB PO STA (08:01)
[2018-11-29] MEDS ORDERED: LIDOCAINE 1% INJ 10MG/ML (20 ML MDV) SQ ONE (08:01)
--- NOTE | 2018-11-29 08:06 | ED ---
General Adult HPI - General Chief complaint: Extremity Injury, Lower Stated complaint: toe injury Time Seen by Provider: 11/29/18 07:38 Source: patient, RN notes reviewed Mode of arrival: wheelchair Limitations: no limitations - History of Present Illness Initial comments: 38 year old female presents to the emergency department for a chief complaint of right toe pain. Patient states that just prior to arrival she stubbed her right fifth toe on a hand woven carpet and rug mender machine. States that it now appears dislocated. Denies any other injuries. Denies any foot or ankle pain. Did not fall. Did not hit her head. Patient has no other complaints at this time including shortness of breath, chest pain, abdominal pain, nausea or vomiting, headache, or visual changes. - Related Data Home Medications Medication Instructions Recorded Confirmed Pnv No.95/Ferrous Fum/Folic AC 1 tab PO DAILY 12/29/16 11/29/18 [ Multivitamin Tablet] metFORMIN HCL 1,000 mg PO BID 11/29/18 11/29/18 Allergies Allergy/AdvReac Type Severity Reaction Status Date / Time latex AdvReac irritation Verified 11/29/18 08:02 Review of Systems ROS Statement: Those systems with pertinent positive or pertinent negative responses have been documented in the HPI. ROS Other: All systems not noted in ROS Statement are negative. Past Medical History Past Medical History: No Reported History History of Any Multi-Drug Resistant Organisms: None Reported Past Surgical History: No Surgical Hx Reported Additional Past Surgical History / Comment(s): nasal, egg retreival Past Psychological History: No Psychological Hx Reported Smoking Status: Current every day smoker Past Alcohol Use History: Rare Past Drug Use History: None Reported General Exam Limitations: no limitations General appearance: alert, in no apparent distress Head exam: Present: atraumatic, normocephalic, normal inspection Eye exam: Present: normal appearance ENT exam: Present: normal exam Neck exam: Present: normal inspection Respiratory exam: Present: normal lung sounds bilaterally. Absent: respiratory distress, wheezes, rales, rhonchi, stridor Cardiovascular Exam: Present: regular rate, normal rhythm, normal heart sounds. Absent: systolic murmur, diastolic murmur, rubs, gallop, clicks Extremities exam: Present: normal capillary refill (Capillary refill less than 2 seconds, DP pulse 2+ in the right lower extremity.), other (Right fifth toe appears laterally displaced, no lacerations or abrasions, no contusions or edema) Course Vital Signs 11/29/18 07:40 Temperature 98.3 F Pulse Rate 87 Respiratory 18 Rate Blood Pressure 112/73 O2 Sat by Pulse 100 Oximetry Procedures - Orthopedic Fracture Reduction Fracture #1 Consent Obtained: verbal consent Side: right Fracture Reduction Location: toe Analgesia: digital block Technique: direct manipulation, traction/counter-traction Post Reduction X-rays Demonstrate: acceptable reduction Post-Reduction Neuro Exam: intact, no change Post-Reduction Vascular Exam: intact, no change Splint Applied: Yes (robles tape) Patient Tolerated Procedure: well Medical Decision Making - Medical Decision Making 38-year-old female presents for displaced fifth toe. Patient stubbed it against a hand woven carpet and rug mender. On exam there is some lateral displacement. Digital block was performed and I did attempt reduction. Significant improvement and lateral displacement. However repeat x-ray showed some improvement in the degree of lateral angulation with mild displacement. Attempted to reduce toe again. Toe was robles taped. Prescription for crutches given. Patient will follow up with orthopedics and return if she has any worsening symptoms. Recommended keeping toe robles taped. Disposition Clinical Impression: Displaced fracture of lesser toe Disposition: HOME SELF-CARE Condition: Good Instructions (If sedation given, give patient instructions): Toe Fracture (ED) Additional Instructions: Please take Motrin and Tylenol for pain. Please use crutches as needed. Keep toe robles taped. Please follow-up with orthopedics in 1-2 days and return to the emergency department if you have any worsening symptoms. Is patient prescribed a controlled substance at d/c from ED?: No Referrals: Fabrizio Saldaña MD [Medical Doctor] - 1-2 days Time of Disposition: 09:26
--- NOTE | 2018-11-29 08:28 | XR ---
EXAMINATION TYPE: XR toes RT DATE OF EXAM: 11/29/2018 COMPARISON: NONE HISTORY: 38-year-old female stubbed toe, displaced phalanx fracture versus dislocation, fifth toe jessica n. TECHNIQUE: 3 views coned down right fifth toe FINDINGS: There is an oblique fracture involving the fifth proximal phalanx with lateral angulation and mild di splacement. No evident subluxation or dislocation. IMPRESSION: Oblique fracture fifth proximal phalanx with lateral angulation and mild displacement. No evident dis location.
--- NOTE | 2018-11-29 09:02 | XR ---
EXAMINATION TYPE: XR toes RT DATE OF EXAM: 11/29/2018 COMPARISON: NONE HISTORY: 38-year-old female pain post reduction fifth toe. TECHNIQUE: 3 views coned on right fifth toe FINDINGS: Some improvement in the degree of lateral angulation and mild displacement of the fifth proximal phal anx fracture. IMPRESSION: Redemonstrated oblique fracture fifth proximal phalanx with some improvement in the degree of lateral angulation and mild displacement.
[2018-11-29 09:54] VITALS: BP 106/74; PULSE 67; RESP 14; TEMP 98
== END 2018-11-29 09:46 | disposition home or self-care (01) ==
LOC: EC 07:36
DX: S92.511A Displaced fracture of proximal phalanx of right lesser toe(s), initial encounter for closed fracture (principal); F17.200 Nicotine dependence, unspecified, uncomplicated; Z79.84 Long term (current) use of oral hypoglycemic drugs; Z91.040 Latex allergy status; W22.8XXA Striking against or struck by other objects, initial encounter
CPT/HCPCS: 73660; 99283; 28515; J2001

== ENCOUNTER 2019-04-01 09:34 | Emergency (ER) | payer BC, OTHER ==
[2019-04-01 09:49] VITALS: RESP 18
[2019-04-01] MEDS ORDERED: SODIUM CHLORIDE 0.9% 1,000 ML IV ONE (10:20)
--- NOTE | 2019-04-01 10:21 | ED ---
Nausea/Vomiting/Diarrhea HPI - General Chief complaint: Nausea/Vomiting/Diarrhea Stated complaint: vomiting, high risk Time Seen by Provider: 04/01/19 10:01 Source: patient Mode of arrival: ambulatory Limitations: no limitations - History of Present Illness Initial comments: 39-year-old female presents today for chief complaint of vomiting and . Patient states that after eating out at a [employer] she had episode of vomiting OF vomiting today. She is unsure if she contracted a food borne illness or emesis due to patient denies any significant nausea or vomiting during this procedure spell. She patient is approximately 9 weeks . Patient states she has had a slight amount of abdominal cramping denies any vaginal bleeding discharge dysuria urgency frequency or any other complaints. Patient states that she has been tolerating oral intake seen remaining review of systems negative. Patient has established OBGYN care. - Related Data Home Medications Medication Instructions Recorded Confirmed Omeprazole Magnesium [PriLOSEC OTC] 20 mg PO DAILY 04/01/19 04/01/19 metFORMIN HCL ER [Glucophage Xr] 1,000 mg PO AC-BID 04/01/19 04/01/19 Allergies Allergy/AdvReac Type Severity Reaction Status Date / Time latex AdvReac irritation Verified 04/01/19 10:52 Review of Systems ROS Statement: Those systems with pertinent positive or pertinent negative responses have been documented in the HPI. ROS Other: All systems not noted in ROS Statement are negative. Past Medical History Past Medical History: No Reported History History of Any Multi-Drug Resistant Organisms: None Reported Past Surgical History: No Surgical Hx Reported Additional Past Surgical History / Comment(s): nasal, egg retreival for IVF Past Psychological History: No Psychological Hx Reported Smoking Status: Current every day smoker Past Alcohol Use History: None Reported Past Drug Use History: None Reported General Exam - General Exam Comments Initial Comments: General: The patient is awake and alert, in no distress, and does not appear acutely ill. Eye: +3 mm pupils are equal, round and reactive to light, extra-ocular movements are intact. No nystagmus. There is normal conjunctiva bilaterally. No signs of icterus. Ears, nose, mouth and throat: There are moist mucous membranes and no oral lesions. Neck: The neck is supple, there is no tenderness or JVD. Cardiovascular: There is a regular rate and rhythm. No murmur, rub or gallop is appreciated. Respiratory: Lungs are clear to auscultation, respirations are non-labored, breath sounds are equal. No wheezes, stridor, rales, or rhonchi. Gastrointestinal: Soft, non-distended, non-tender abdomen without masses or organomegaly noted. There is no rebound or guarding present. Musculoskeletal: Normal ROM, no tenderness. Strength 5/5. Sensation intact. Radial pulses equal bilaterally 2+. Neurological: A&O x 3. CN II-XII intact, There are no obvious motor or sensory deficits. Coordination appears grossly intact. Speech is normal. Skin: Skin is warm and dry and no rashes or lesions are noted. Psychiatric: Cooperative, appropriate mood & affect, normal judgment. Limitations: no limitations Course Vital Signs 04/01/19 04/01/19 09:46 12:07 Temperature 97.9 F 98.2 F Pulse Rate 87 79 Respiratory 18 18 Rate Blood Pressure 112/77 98/60 O2 Sat by Pulse 100 99 Oximetry Medical Decision Making - Medical Decision Making Well-appearing 39-year-old female presenting to emergency department today for chief complaint of vomiting and . Patient has not had ultrasound confirmed . She states she has had some mild cramping no vaginal bleeding. Ultrasound revealed a viable intrauterine . No complicated process seen at this time. Patient has had no active emesis emergency department she appears hydrated given IV fluid bolus and maintenance hydration. 1 dose of Reglan and at this time if the patient is stable for discharge and outpatient [facility] follow-up. Patient states she has a scheduled appointment. Discussed case with attending Justin Garza. - Lab Data Result diagrams: 04/01/19 10:34 04/01/19 10:34 Lab Results 04/01/19 04/01/19 04/01/19 Range/Units 10:34 10:34 10:34 WBC 12.2 H (3.8-10.6) k/uL RBC 5.05 (3.80-5.40) m/uL Hgb 15.1 (11.4-16.0) gm/dL Hct 44.6 (34.0-46.0) % MCV 88.3 (80.0-100.0) fL MCH 29.9 (25.0-35.0) pg MCHC 33.9 (31.0-37.0) g/dL RDW 12.5 (11.5-15.5) % Plt Count 324 (150-450) k/uL Neutrophils % 86 % Lymphocytes % 7 % Monocytes % 5 % Eosinophils % 1 % Basophils % 0 % Neutrophils # 10.5 H (1.3-7.7) k/uL Lymphocytes # 0.8 L (1.0-4.8) k/uL Monocytes # 0.6 (0-1.0) k/uL Eosinophils # 0.1 (0-0.7) k/uL Basophils # 0.0 (0-0.2) k/uL Sodium 135 L (137-145) mmol/L Potassium 4.1 (3.5-5.1) mmol/L Chloride 104 (98-107) mmol/L Carbon Dioxide 22 (22-30) mmol/L Anion Gap 9 mmol/L BUN 16 (7-17) mg/dL Creatinine 0.64 (0.52-1.04) mg/dL Est GFR (CKD-EPI)AfAm >90 (>60 ml/min/1.73 sqM) Est GFR (CKD-EPI)NonAf >90 (>60 ml/min/1.73 sqM) Glucose 87 (74-99) mg/dL Calcium 9.2 (8.4-10.2) mg/dL HCG, Quant 25683.6 mIU/mL Urine Color Yellow Urine Appearance Clear (Clear) Urine pH 6.0 (5.0-8.0) Ur Specific [place] 1.024 (1.001-1.035) Urine Protein Negative (Negative) Urine Glucose (UA) Negative (Negative) Urine Ketones Trace H (Negative) Urine Blood Negative (Negative) Urine Nitrite Negative (Negative) Urine Bilirubin Negative (Negative) Urine Urobilinogen 2.0 (<2.0) mg/dL Ur Leukocyte Esterase Negative (Negative) Disposition Clinical Impression: Vomiting, First trimester Disposition: HOME SELF-CARE Condition: Good Instructions (If sedation given, give patient instructions): Acute Nausea and Vomiting (ED), Acute Diarrhea (ED) Additional Instructions: Please use medication as discussed. Please follow-up with OBGYN as scheduled, call to ensure however they do not want a sooner appointment secondary to ER visit. Please return to emergency room if the symptoms increase or worsen or for any other concerns, persistent vomiting, pelvic pain or vaginal bleeding . Is patient prescribed a controlled substance at d/c from ED?: No Referrals: None,Stated [Primary Care Provider] - 1-2 days Time of Disposition: 11:52
[2019-04-01] MEDS ORDERED: SODIUM CHLORIDE 0.9% 1,000 ML IV SCH (10:30)
[2019-04-01 11:13] LABS: Appearance,Urine Clear (Clear); Basophils % (A) 0 %; Bilirubin,Urine Negative (Negative); Blood,Urine Negative (Negative); Color,Urine Yellow; Eosinophils # (A) 0.1 k/uL (0-0.7); Eosinophils % (A) 1 %; Glucose,Urine (UA) Negative (Negative); HCT 44.6 % (34.0-46.0); HGB 15.1 gm/dL (11.4-16.0); Ketones,Urine Trace (Negative); Leukocyte Esterase,Urine Negative (Negative); Lymphocytes # (A) 0.8 k/uL (1.0-4.8); Lymphocytes % (A) 7 %; MCH 29.9 pg (25.0-35.0); MCHC 33.9 g/dL (31.0-37.0); MCV 88.3 fL (80.0-100.0); Mean Platelet Volume 6.8; Monocytes # (A) 0.6 k/uL (0-1.0); Monocytes % (A) 5 %; Neutrophils # (A) 10.5 k/uL (1.3-7.7); Neutrophils % (A) 86 %; Nitrite,Urine Negative (Negative); Platelet Count 324 k/uL (150-450); Protein,Urine Negative (Negative); RBC 5.05 m/uL (3.80-5.40); RDW 12.5 % (11.5-15.5); Specific Gravity,Urine 1.024 (1.001-1.035); WBC 12.2 k/uL (3.8-10.6)
[2019-04-01 11:23] LABS: African American GFR (CKD) >90 (>60 ml/min/1.73 sqM); Anion Gap 9 mmol/L; Blood Urea Nitrogen 16 mg/dL (7-17); Calcium 9.2 mg/dL (8.4-10.2); Carbon Dioxide 22 mmol/L (22-30); Chloride 104 mmol/L (98-107); Glucose 87 mg/dL (74-99); Non-African American GFR(CKD) >90 (>60 ml/min/1.73 sqM); Potassium 4.1 mmol/L (3.5-5.1); Sodium 135 mmol/L (137-145)
--- NOTE | 2019-04-01 11:34 | US ---
EXAMINATION TYPE: Transabdominal DATE OF EXAM: 04/01/2019 10:20 AM COMPARISON: NONE CLINICAL HISTORY: cramping/vomiting. Cramping and vomiting EXAM PERFORMED: Transabdominal (TA) EXAM MEASUREMENTS: GESTATIONAL AGE / DATING Physician Established: Not yet established Dates by LMP: (8 weeks/3 days) EDC: 11/08/2019 Dates by First Scan: No previous this is first scan Dates by Current Scan for: (7 weeks/6 days) EDC: 11/12/2019 MATERNAL ANATOMY Uterus: 10.1 x 4.7 x 5.3 cm Right Ovary: 4.4 x 2.8 x 2.6 cm Left Ovary: 3.5 x 2.3 x 2.6 cm Post CDS / Adnexa: wnl Presence of free fluid: no Presence of corpus luteal cyst: yes right Presence of subchorionic bleed: no GESTATION / SURVEY CRL: 1.5 cm (7 weeks/6 days) Yolk Sac (normal less than 6mm): 4 mm Heart Rate: 162 bpm Rhythm: Normal IUP: Viable IUP Beta HcG (if available): Not available at this time IMPRESSION: Single intrauterine gestation estimated at 7 weeks 6 days gestation based on current crown-rump lengt h. Cardiac activity measures 162 bpm.
[2019-04-01] MEDS ORDERED: METOCLOPRAMIDE 5 MG/ML 2 ML VIAL IVP STA (11:52)
[2019-04-01 12:08] VITALS: BP 98/60; PULSE 79; TEMP 98.2
[2019-04-01 12:47] LABS: HCG,Quantitative Serum 67535.6 mIU/mL
== END 2019-04-01 12:11 | disposition home or self-care (01) ==
LOC: EC 09:34
DX: O21.9 Vomiting of pregnancy, unspecified (principal); O99.89 Other specified diseases and conditions complicating pregnancy, childbirth and the puerperium; R10.9 Unspecified abdominal pain; O99.331 Smoking (tobacco) complicating pregnancy, first trimester; Z91.040 Latex allergy status; F17.200 Nicotine dependence, unspecified, uncomplicated; Z3A.01 Less than 8 weeks gestation of pregnancy
CPT/HCPCS: 36415; 80048; 85025; 81003; 84702; 76801; 99284; 96374; 96361; J2765

== ENCOUNTER 2019-08-24 20:53 | Outpatient (CLI) | payer BC ==
[2019-08-24 21:42] LABS: Glucose,Whole Blood 153 mg/dL (75-99)
[2019-08-24 22:08] VITALS: BP 121/74; PULSE 90; RESP 18; TEMP 98.1
--- NOTE | 2019-09-22 07:36 | P.MSEPDOC ---
Presenting Problems - Arrival Data Date of Arrival on Unit: 08/24/19 Time of Arrival on Unit: 20:53 Mode of Transport: Ambulatory - Complaint OB-Reason for Admission/Chief Complaint: Decreased Movement Comment: decreased fm x3 days Medical History - Information : 1 Para: 0 Term: 0 : 0 Abortions: Spontaneous or Elective: 0 Number of Living Children: 0 - Gestational Age Gestational Age by MITUL (wks/days): 29 Weeks and 0 Days - History Complications: GDM, Smoker Review of Systems - Review of Systems Constitutional: No problems Breast: No problems ENT: No problems Cardiovascular: No problems Respiratory: No problems Gastrointestinal: No problems Genitourinary: No problems Musculoskeletal: No problems Neurological: No problems Skin: No problems Vital Signs - Temperature Temperature: 98.1 F Temperature Source: Temporal Artery Scan - Pulse Right Pulse Rate: 90 Pulse Assessment Method: Pulse Oximetry - Respirations Respiratory Rate: 18 O2 Sat by Pulse Oximetry: 100 - Blood Pressure Right Arm Blood Pressure: 121/74 Blood Pressure Mean: 89 Blood Pressure Source: Automatic Cuff Medical Screen Scoring (Pre) - Cervical Exam Dilation: Exam Deferred Effacement: Exam Deferred - Uterine Contractions Frequency: N/A Duration: N/A Intensity: N/A - Maternal Vital Signs Maternal Temperature: N/A Maternal Blood Pressure: N/A Signs of Preeclampsia: N/A Maternal Respirations: N/A - Maternal Trauma Maternal Trauma: N/A - Assessment - Baby A Baseline FHR: 145 Heart Rate - NICHD Category: Category I (Normal) = 0 NST: Reactive Position: N/A - Total Score - Baby A Total Score - Baby A: 0 - Total Score - Baby B Total Score - Baby B: 0 - Total Score - Baby C Total Score - Baby C: 0 - Level of Risk - Baby A Level of Risk - Baby A: Low (0-5) - Level of Risk - Baby B Level of Risk - Baby B: Low (0-5) - Level of Risk - Baby C Level of Risk - Baby C: Low (0-5) Physician Notification (Pre) - Physician Notified Physician Notified Date: 08/24/19 Physician Notified Time: 21:41 - Notification Comment Comment: Reported on decreased fm x 3 days. recent dx of GDM but hasn't followed up. Reported on reactive fhts, no pain, bleeding, leaking or contractions. NST reactive. Orders to d/c home with instructions, keep scheduled appt in office tomorrow morning Disposition - Disposition OB Disposition: Physician follow up in office, Discharge to home Discharge Date: 08/24/19 Discharge Time: 21:50 I agree with the RN Medical Screening Exam: Yes Risk & Benefit of care provided described in d/c instruction: Yes Diagnosis: DECREASED MOVEMENTS, SECOND TRIMESTER, FETUS 1
== END 2019-08-24 21:50 | disposition home or self-care (01) ==
LOC: FBPOP 20:53
PROVIDERS: ATTEND Obstetrics & Gynecology
DX: O36.8121 Decreased fetal movements, second trimester, fetus 1 (principal); Z3A.29 29 weeks gestation of pregnancy
CPT/HCPCS: 59025; 99213

== ENCOUNTER 2019-09-26 14:21 | Outpatient (CLI) | payer BC ==
[2019-09-26 14:51] LABS: Glucose,Whole Blood 104 mg/dL (75-99)
[2019-09-26] MEDS ORDERED: LACTATED RINGERS 1,000 ML IV SCH (15:00)
[2019-09-26 15:07] VITALS: BP 110/67; PULSE 82; RESP 16; TEMP 98.4
--- NOTE | 2019-09-26 17:55 | US ---
EXAMINATION TYPE: US OB BPP wo non-stress DATE OF EXAM: 09/26/2019 COMPARISON: OB US CLINICAL HISTORY: nonreassuring FHTs. MITUL per patient: 11/09/2019; EXAM PERFORMED: Transabdominal (TA) BPP PARAMETERS: PRESENTATION: Breech LIE: oblique?? HEART RATE: 143 bpm RHYTHM: Normal PEDRITO: 17.3 DIAPHRAGM IMAGED: yes BPP SCORIN. Breathin (1 episode of breathing of 30 second duration in 30 minutes of scanning time) 2. Movement: 2 (at least 3 discrete body movements in 30 minutes) 3. Tone: 2 (1 episode of active flexion/extension of limb) 4. PEDRITO: 2 (PEDRITO index > 5cm) TOTAL SCORE: 8 / 8 US Tech findings reported to patient's RN, Rupali, at exam's end.
--- NOTE | 2019-09-28 13:06 | P.MSEPDOC ---
Presenting Problems - Arrival Data Date of Arrival on Unit: 09/26/19 Time of Arrival on Unit: 14:21 Mode of Transport: Portable - Complaint OB-Reason for Admission/Chief Complaint: Observation/Evaluation Comment: Pt sent over for monitoring after nonreactive NST at Medical History - Information : 1 Para: 0 Term: 0 : 0 Abortions: Spontaneous or Elective: 0 Number of Living Children: 0 - Gestational Age Gestational Age by MITUL (wks/days): 33 Weeks and 5 Days - History Complications: GDM, Smoker Review of Systems - Review of Systems Constitutional: No problems Breast: No problems ENT: No problems Cardiovascular: No problems Respiratory: No problems Gastrointestinal: No problems Genitourinary: No problems Musculoskeletal: No problems Neurological: No problems Skin: No problems Vital Signs - Temperature Temperature: 98.4 F Temperature Source: Oral - Pulse Right Sitting Brachial Pulse Rate: 82 Pulse Assessment Method: Automatic Cuff - Respirations Respiratory Rate: 16 Oxygen Delivery Method: Room Air O2 Sat by Pulse Oximetry: 98 - Blood Pressure Right Arm Sitting Blood Pressure: 110/67 Blood Pressure Mean: 81 Blood Pressure Source: Automatic Cuff Medical Screen Scoring (Pre) - Cervical Exam Dilation: 0 cm = 0 Membranes: Intact - Uterine Contractions Frequency: N/A Duration: N/A Intensity: N/A - Maternal Vital Signs Maternal Temperature: N/A Maternal Blood Pressure: N/A Signs of Preeclampsia: N/A Maternal Respirations: N/A - Maternal Trauma Maternal Trauma: N/A - Assessment - Baby A Baseline FHR: 150 NST: Non-reactive = 3 Position: N/A Station: N/A - Total Score - Baby A Total Score - Baby A: 3 - Total Score - Baby B Total Score - Baby B: 0 - Total Score - Baby C Total Score - Baby C: 0 - Level of Risk - Baby A Level of Risk - Baby A: Low (0-5) - Level of Risk - Baby B Level of Risk - Baby B: Low (0-5) - Level of Risk - Baby C Level of Risk - Baby C: Low (0-5) Physician Notification (Pre) - Physician Notified Physician Notified Date: 09/26/19 Physician Notified Time: 14:55 - Notification Comment Comment: Weston c\Dr. Ramos, advthai of pts presence on FBP; sent over after nonreactive NST in office. SVE performed by Dr tate/denice/. Orders bolus 1L LR. Medical Screen Scoring (Post) - Cervical Exam Dilation: Exam Deferred Effacement: Exam Deferred Membranes: Intact - Uterine Contractions Frequency: N/A Duration: N/A Intensity: N/A - Maternal Vital Signs Maternal Temperature: N/A Maternal Blood Pressure: N/A Signs of Preeclampsia: N/A Maternal Respirations: N/A - Pain Assessment Pain Scale Used: Numeric (1 - 10) Pain Intensity: 0 Pain Management Goal: 3 - Maternal Trauma Maternal Trauma: N/A - Assessment - Baby A Heart Rate: 140 Heart Rate - NICHD Category: Category II (Indeterminate) = 3 NST: Reactive Position: N/A Station: N/A - Total Score Total Score - Baby A: 3 Total Score - Baby B: 0 Total Score - Baby C: 0 - Post Treatment Level of Risk Post Treatment Level of Risk - Baby A: Low (0-5) Post Treatment Level of Risk - Baby B: Low (0-5) Post Treatment Level of Risk - Baby C: Low (0-5) Physician Notification (Post) - Physician Notified Physician Notified Date: 09/26/19 Physician Notified Time: 17:17 Physician/Practitioner Notified:: Dr. Ramos Spoke With: Dr. Rmaos New Order Received: Yes - Notification Comment Comment: Dr. Ramos calling for an update. Report given on [facility] 11/18. Orders to discharge. pt and have her call for a follow up appointment next week. Pt does not have to go back on the monitor prior to discharge. Disposition - Disposition OB Disposition: Discharge to home Discharge Date: 09/26/19 Discharge Time: 17:25 I agree with the RN Medical Screening Exam: Yes Risk & Benefit of care provided described in d/c instruction: Yes Diagnosis: OTHER SPECIFIED COMPLICATIONS OF LABOR AND DELIVERY
== END 2019-09-26 17:25 | disposition home or self-care (01) ==
LOC: FBPOP 14:21
PROVIDERS: ATTEND Obstetrics & Gynecology Obstetrics
DX: O75.89 Other specified complications of labor and delivery (principal); Z3A.33 33 weeks gestation of pregnancy
CPT/HCPCS: 59025; 76819; 96360; 99214

== ENCOUNTER 2019-11-08 10:39 | Inpatient (IN) | payer BC, OTHER ==
[2019-11-08 11:04] LABS: Glucose,Whole Blood 97 mg/dL (75-99)
[2019-11-08] MEDS ORDERED: LACTATED RINGERS 1,000 ML IV SCH (11:15)
[2019-11-08] MEDS ORDERED: CITRIC ACID-SODIUM CITRATE 15 ML CUP PO ONE (11:26)
[2019-11-08] MEDS ORDERED: ONDANSETRON 4 MG/2 ML VIAL ONE (11:28)
[2019-11-08] MEDS ORDERED: NALBUPHINE 10 MG/ML (1 ML AMP) ONE (11:28)
[2019-11-08] MEDS ORDERED: OXYTOCIN 10 UNIT/ML 1 ML VIAL ONE (11:28)
[2019-11-08] MEDS ORDERED: MORPHINE SULFATE (PF) 0.3 MG/0.3 ML SYR ONE (11:28)
[2019-11-08 11:30] LABS: Basophils % (A) 0 %; Eosinophils # (A) 0.1 k/uL (0-0.7); Eosinophils % (A) 1 %; HCT 43.9 % (34.0-46.0); HGB 15.1 gm/dL (11.4-16.0); Lymphocytes # (A) 1.5 k/uL (1.0-4.8); Lymphocytes % (A) 11 %; MCH 31.9 pg (25.0-35.0); MCHC 34.3 g/dL (31.0-37.0); MCV 93.1 fL (80.0-100.0); Mean Platelet Volume 7.2; Monocytes # (A) 0.7 k/uL (0-1.0); Monocytes % (A) 5 %; Neutrophils # (A) 10.9 k/uL (1.3-7.7); Neutrophils % (A) 81 %; Platelet Count 242 k/uL (150-450); RBC 4.72 m/uL (3.80-5.40); RDW 13.3 % (11.5-15.5); WBC 13.4 k/uL (3.8-10.6)
[2019-11-08] MEDS ORDERED: diphenhydrAMINE 50 MG CAP PO PRN (12:21)
[2019-11-08] MEDS ORDERED: ACETAMINOPHEN TAB 325 MG TAB PO PRN (12:21)
[2019-11-08] MEDS ORDERED: SIMETHICONE 80 MG CHEWABLE PO PRN (12:21)
[2019-11-08] MEDS ORDERED: ONDANSETRON 4 MG/2 ML VIAL IVP PRN ×2 (12:21→12:24)
[2019-11-08] MEDS ORDERED: METOCLOPRAMIDE 5 MG/ML 2 ML VIAL IVP PRN (12:21)
[2019-11-08] MEDS ORDERED: ZOLPIDEM 5 MG TAB PO PRN (12:21)
[2019-11-08] MEDS ORDERED: ACETAMINOPHEN IV (For NPO) 1,000 MG in EMPTY BAG 1 BAG IVPB ONE (12:21)
[2019-11-08] MEDS ORDERED: diphenhydrAMINE 50 MG/ML 1 ML VIAL IVP PRN ×2 (12:21→12:24)
[2019-11-08] MEDS ORDERED: diphenhydrAMINE 25 MG CAP PO PRN (12:21)
[2019-11-08] MEDS ORDERED: IBUPROFEN 600 MG TAB PO PRN (12:21)
[2019-11-08] MEDS ORDERED: NALOXONE 0.4 MG/ML 1 ML VIAL IV PRN ×2 (12:21→12:24)
[2019-11-08] MEDS ORDERED: HYDROcodone/APAP 5-325MG 1 EACH TAB PO PRN (12:21)
[2019-11-08] MEDS ORDERED: HYDROmorphone 0.5 MG/0.5 ML SYRINGE IVP PRN (12:24)
[2019-11-08] MEDS ORDERED: KETOROLAC 30 MG/ML 1 ML VIAL IVP PRN (12:24)
--- NOTE | 2019-11-08 12:26 | P.HPOB ---
History of Present Illness H&P Date: 11/08/19 Chief Complaint: IUP at 39 and 6/sevenths weeks, gestational diabetes, nonre assuring s This is a 39-year-old 1 para 0 at 39-6/7 weeks that presented to the office this morning for routine visit. Patient was undergoing a nonstress tests were minimal variability was noted with heart tones are noted to be in the 120s. Patient was then sent to OB for further evaluation. Patient has been receiving routine care which has been complicated by gestational diabetes. Patient is been compliant with a diet and blood sugars have been well controlled. Patient has been receiving routine nonstress tests every week, last one was reassuring with a BPP of 8 over 8. Patient denies loss of fluid vaginal bleeding or contractions. Patient does n ote upon questioning that last movement was last evening, and she has not felt to move this morning. heart tones are reviewed and labor and delivery and decision is made for primary secondary to nonreassuring status. Review of Systems Constitutional: Denies chills, Denies fatigue, Denies fever Ears, nose, mouth and throat: Denies headache Cardiovascular: Reports leg edema Respiratory: Denies dyspnea Gastrointestinal: Denies constipation, Denies diarrhea, Denies nausea, Denies vomiting Genitourinary: Reports Past Medical History Past Medical History: Hyperlipidemia Additional Past Medical History / Comment(s): Gestational diabetes, PCOS History of Any Multi-Drug Resistant Organisms: None Reported Past Surgical History: No Surgical Hx Reported Additional Past Surgical History / Comment(s): nasal, egg retreival for IVF Past Anesthesia/Blood Transfusion Reactions: No Reported Reaction Smoking Status: Current every day smoker Medications and Allergies Home Medications Medication Instructions Recorded Confirmed Type Omeprazole Magnesium [PriLOSEC OTC] 20 mg PO DAILY 04/01/19 11/08/19 History metFORMIN HCL ER [Glucophage Xr] 500 mg PO AC-BID 04/01/19 11/08/19 History Pnv No.95/Ferrous Fum/Folic AC 1 each PO DAILY 08/24/19 11/08/19 History [ Multivitamin Tablet] Allergies Allergy/AdvReac Type Severity Reaction Status Date / Time latex AdvReac irritation Verified 11/08/19 10:43 Exam Osteopathic Statement: *. No significant issues noted on an osteopathic structural exam other than those noted in the History and Physical/Consult. Intake and Output 11/07/19 11/08/19 11/08/19 22:59 06:59 14:59 Other: Weight 91.172 kg Targeted physical exam is performed in this date and [employer] certified network professional a well-nourished well-developed tearful female in no acute distress, breathing is noted to be nonlabored, heart has a regular rate and rhythm, abdomen is gravid and appropriate for gestational age, heart tones are noted to be in the 120s with minimal variability. Cervical exam performed and the nurse revealed a closed cervix Results Result Diagrams: 11/08/19 11:01 Abnormal Lab Results - Last 24 Hours (Table) 11/08/19 Range/Units 11:01 WBC 13.4 H (3.8-10.6) k/uL Neutrophils # 10.9 H (1.3-7.7) k/uL Assessment and Plan (1) Term Current Visit: Yes Status: Acute Code(s): Z34.90 - ENCNTR FOR SUPRVSN OF NORMAL , UNSP, UNSP TRIMESTER SNOMED Code(s): 29490016 (2) GDM (gestational diabetes mellitus), class A1 Current Visit: Yes Status: Acute Code(s): O24.410 - GESTATIONAL DIABETES MELLITUS IN , DIET CONTROLLED SNOMED Code(s): 22543592 (3) Non-reassuring status Current Visit: Yes Status: Acute Code(s): HIZ2002 - SNOMED Code(s): 918927302 Plan: This 39-year-old 1 para 0 at 39-6/7 weeks that is admitted to labor and delivery for primary secondary to nonreassuring status. Patient is understanding of the urgent need of the and states she has no questions. We'll proceed to the operating suite, anesthesia is notified and on the way.
[2019-11-08] MEDS ORDERED: OXYTOCIN 20 UNITS/1000 ML NS 1,000 ML IV SCH (12:30)
--- NOTE | 2019-11-08 12:32 | P.OP ---
Date of Procedure: 11/08/19 Preoperative Diagnosis: IUP at 39 and 6/sevenths weeks, GDM, nonreassuring status Postoperative Diagnosis: Same Procedure(s) Performed: Primary low transverse section Anesthesia: spinal Surgeon: Anali Ramos Education Coordinator #1: Ligia Kumar Estimated Blood Loss (ml): 315 IV fluids (ml): 800 Urine output (ml): 400 Pathology: other (Placenta) Condition: stable Disposition: PACU Indications for Procedure: This 39-year-old 1 para 0 at 39-6/7 weeks presented to the office for routine nonstress tests/ visit. Nonstress 12 test was obtained heart tones returned be in the 120s with minimal variability therefore she was sent to OB for evaluation. Patient is a known tobacco smoker and states she smoked about an hour prior to appointment. She had not eaten this morning. She was then sent to OB for further evaluation. heart tones were continued to be 120s with minimal variability 1 L of lactated Ringer's was noted to be given, oxygen was applied. Patient was counseled on primary and taken back to the operating suite for delivery. Operative Findings: Normal uterus tubes and ovaries were appreciated, stats are pending as baby is in the nursery being evaluated Description of Procedure: Patient was taken back to the operating suite where spinal anesthesia was obtained quickly without difficulty by the anesthesia department. She was prepped and draped in normal sterile fashion in the dorsal supine position. A Pfannenstiel skin incision was made with scalpel and carried through to the underlying layer of fascia. Fascia was then incised in the midline and extended laterally. The superior aspect of the fascial incision was then grasped erlinda clamps, elevated and underlying rectus muscles dissected off sharply. Attention was then turned to the inferior aspect of the fascial incision which was grasped erlinda clamps, elevated and underlying rectus muscles dissected off sharply once again. The rectus muscles were in the midline the 30 was identified and entered. The bladder blade was then inserted and into the pelvis. The vesicouterine peritoneum was identified and a bladder flap was then created the bladder blade was then reinserted. A hysterotomy incision was then made with the scalpel, and the fetus was encountered in a vertex presentation. The baby was delivered without difficulty the umbilical cords doubly clamped and cut and handed off to awaiting RN. The placenta was then delivered manually and the uterus was cleared of all clots and debris. The uterine incision was then closed with 0 Vicryl in a running locked fashion 2. A small amount of bleeding was noted in the midportion of the hysterotomy incision therefore a eyeqai-uh-klozl suture was used to obtain hemostasis. The pelvis was then copiously irrigated and the uterus was returned to the abdomen. The gutters were cleared of all clots and debris. Hysterotomy incision was inspected and hemostasis was appreciated. The peritoneum was then loosely reapproximated the fascia was then closed with 0 Vicryl in a running fashion. The subcu tissue was irrigated hemostasis was appreciated and it was closed with 3-0 Vicryl in a running fashion. The skin was closed with 4-0 Vicryl in a subarticular fashion. Patient tolerated procedure well All counts were noted to be correct 2 at the end of the procedure.
[2019-11-08] MEDS ORDERED: IBUPROFEN IV 800 MG in SODIUM CHLORIDE 0.9% 250 ML IV ONE (12:45)
[2019-11-08] MEDS: LACTATED RINGERS 1,000 ML IV SCH ×2 (13:06→18:28)
[2019-11-08] MEDS: diphenhydrAMINE 50 MG/ML 1 ML VIAL IVP PRN (18:37)
[2019-11-08 18:53] VITALS: RESP 16
[2019-11-08 23:27] LABS: Hemoglobin A1C 5.3 % (4.0-6.0)
[2019-11-09] MEDS: diphenhydrAMINE 50 MG/ML 1 ML VIAL IVP PRN (02:15)
[2019-11-09 08:18] LABS: Basophils % (A) 0 %; Eosinophils # (A) 0.1 k/uL (0-0.7); Eosinophils % (A) 1 %; HCT 41.8 % (34.0-46.0); HGB 13.8 gm/dL (11.4-16.0); Lymphocytes # (A) 1.4 k/uL (1.0-4.8); Lymphocytes % (A) 10 %; MCHC 33.1 g/dL (31.0-37.0); MCV 93.6 fL (80.0-100.0); Mean Platelet Volume 7.3; Monocytes # (A) 0.7 k/uL (0-1.0); Monocytes % (A) 5 %; Neutrophils # (A) 11.5 k/uL (1.3-7.7); Neutrophils % (A) 82 %; Platelet Count 211 k/uL (150-450); RBC 4.47 m/uL (3.80-5.40); RDW 13.4 % (11.5-15.5); WBC 14.1 k/uL (3.8-10.6)
--- NOTE | 2019-11-09 08:25 | P.DS ---
Providers Date of admission: 11/08/19 11:22 Expected date of discharge: 11/09/19 Attending physician: Anali Ramos Primary care physician: Stated None - Discharge Diagnosis(es) (1) Term Current Visit: Yes Status: Acute (2) GDM (gestational diabetes mellitus), class A1 Current Visit: Yes Status: Acute (3) Non-reassuring status Current Visit: Yes Status: Acute (4) S/P section Current Visit: Yes Status: Acute Hospital Course: This 39-year-old 1 para 0 at 39-6/7 weeks presented to the office yesterday on 11/07 for routine visit. Patient was placed on the NST and heart tones were noted to be 120s with minimal variability therefore patient was sent to labor and delivery for further monitoring. Patient is a known tobacco smoker and states she smoked 5 now her prior to her visit. Patient is known gestational diabetic and had been receiving routine care. Patient's blood sugars were well controlled throughout . Patient had been receiving testing throughout this . Patient notes last movement was the night prior to her appointment in states she is unsure if she felt movement the morning of her appointment. Once on labor and delivery IV fluid bolus along with oxygen treatment was begun, no improvement of heart tones were noted therefore decision was made to take patient for primary secondary to nonreassuring status. C- section was performed without difficulty for further details on the please the operative report. Viable male infant was delivered at 1147, weight of 9 pounds. was subsequently transferred to [facility] for further support as he needed respiratory support. Patient's post op care has been uncomplicated on this postoperative day #1 she is ambulating and voiding without difficulty. She states her pain is well- controlled. She notes her lochia to be minimal. She is anxious to be discharged as she would [facility] . Patient Condition at Discharge: Good Plan - Discharge Summary New Discharge Prescriptions: No Action metFORMIN HCL ER [Glucophage Xr] 500 mg PO AC-BID Omeprazole Magnesium [PriLOSEC OTC] 20 mg PO DAILY Pnv No.95/Ferrous Fum/Folic AC [ Multivitamin Tablet] 1 each PO DAILY Discharge Medication List Omeprazole Magnesium [PriLOSEC OTC] 20 mg PO DAILY 04/01/19 [History] metFORMIN HCL ER [Glucophage Xr] 500 mg PO AC-BID 04/01/19 [History] Pnv No.95/Ferrous Fum/Folic AC [ Multivitamin Tablet] 1 each PO DAILY 08/24/19 [History] Follow up Appointment(s)/Referral(s): Anali Ramos DO [Doctor of Osteopathic Medicine] - 1 Week Patient Instructions/Handouts: (DC), (GEN) Discharge Disposition: HOME SELF-CARE
[2019-11-09] MEDS ORDERED: LORATADINE 10 MG TAB PO STA (08:31)
[2019-11-09] MEDS: SENNOSIDES-DOCUSATE SODIUM 1 EACH TAB PO SCH ×2 (08:47→08:48)
[2019-11-09] MEDS ORDERED: PRENATAL VIT-IRON-FOLIC ACID 1 EACH CAP PO SCH (09:00)
--- NOTE | 2019-11-09 12:11 | P.PN ---
Progress Note - Text Progress Note Date: 11/09/19 Pt seen and examined at bedside. No acute events overnight. Patient denies nausea, headaches, chest pain, shortness of breath, parathesias, fever, chills. Patient was able to ambulate and use the bathroom. Patients pain is well controlled. Procedure site is clean and free of erythema and swelling. No complaints. All questions answered.
[2019-11-09 15:00] VITALS: BP 98/63; PULSE 71; TEMP 98.9
--- NOTE | 2019-11-09 16:06 | P.MSEPDOC ---
Presenting Problems - Arrival Data Date of Arrival on Unit: 11/08/19 Time of Arrival on Unit: 11:18 Mode of Transport: Ambulatory - Complaint OB-Reason for Admission/Chief Complaint: NST Comment: Pt here from office for NST due to failed NST in office Medical History - Information : 1 Para: 0 Term: 0 : 0 Abortions: Spontaneous or Elective: 0 Number of Living Children: 0 - Gestational Age Gestational Age by MITUL (wks/days): 40 Weeks and 0 Days - History Complications: GDM Review of Systems - Review of Systems Constitutional: No problems Breast: No problems ENT: No problems Cardiovascular: No problems Respiratory: No problems Gastrointestinal: No problems Genitourinary: No problems Musculoskeletal: No problems Neurological: No problems Skin: No problems Vital Signs - Temperature Temperature: 98.9 F Temperature Source: Oral - Pulse Pulse Oximetery Pulse Rate: 71 Pulse Assessment Method: Automatic Cuff - Respirations Respiratory Rate: 16 Oxygen Delivery Method: Room Air - Blood Pressure Right Arm Blood Pressure: 98/63 Blood Pressure Mean: 74 Blood Pressure Source: Automatic Cuff Medical Screen Scoring (Pre) - Cervical Exam Dilation: 0 cm = 0 Membranes: Intact - Uterine Contractions Frequency: N/A Duration: N/A Intensity: N/A - Maternal Vital Signs Maternal Temperature: N/A Maternal Blood Pressure: N/A Signs of Preeclampsia: N/A Maternal Respirations: N/A - Maternal Trauma Maternal Trauma: N/A - Assessment - Baby A Baseline FHR: 120 Heart Rate - NICHD Category: Category III (Abnormal) = 12 NST: Non-reactive = 3 Position: N/A Station: N/A - Total Score - Baby A Total Score - Baby A: 15 - Total Score - Baby B Total Score - Baby B: 0 - Total Score - Baby C Total Score - Baby C: 0 - Level of Risk - Baby A Level of Risk - Baby A: High (10+) - Level of Risk - Baby B Level of Risk - Baby B: Low (0-5) - Level of Risk - Baby C Level of Risk - Baby C: Low (0-5) Physician Notification (Pre) - Physician Notified Physician Notified Date: 11/08/19 Physician Notified Time: 10:52 New Order Received: Yes Disposition - Disposition OB Disposition: Admit I agree with the RN Medical Screening Exam: Yes Risk & Benefit of care provided described in d/c instruction: Yes Diagnosis: OTHER SPECIFIED COMPLICATIONS OF LABOR AND DELIVERY
== END 2019-11-09 16:50 | disposition home or self-care (01) | DRG 788 ==
LOC: FBPOP 10:39 → 4FBP 11:22
PROVIDERS: ADMIT Obstetrics & Gynecology Obstetrics; ATTEND Obstetrics & Gynecology Obstetrics
PROC: 10D00Z1 Extraction of Products of Conception, Low, Open Approach (ICD-10-PCS; principal; 2019-11-08 11:26)
DX: O77.9 Labor and delivery complicated by fetal stress, unspecified (principal); O24.425 Gestational diabetes mellitus in childbirth, controlled by oral hypoglycemic drugs; O99.284 Endocrine, nutritional and metabolic diseases complicating childbirth; E78.5 Hyperlipidemia, unspecified; O99.334 Smoking (tobacco) complicating childbirth; F17.200 Nicotine dependence, unspecified, uncomplicated; Z37.0 Single live birth; Z3A.39 39 weeks gestation of pregnancy; E28.2 Polycystic ovarian syndrome; Z91.040 Latex allergy status; Z79.84 Long term (current) use of oral hypoglycemic drugs
CPT/HCPCS: 59025; 83036; 85025; 86850; 86900; 86901; 96360